=== PATIENT | female | born 1985 | race Caucasian/White ===

== ENCOUNTER 2020-08-29 18:14 | Inpatient (IN) | payer BC ==
[~2020-08-29] VITALS: Ht 165.1 cm; Wt 65.3 kg
[2020-08-29] MEDS: POTASSIUM CL. PREMIX PERIPHER. 50 ML IV SCH ×4 (00:14→23:14)
--- NOTE | 2020-08-29 18:20 | NUR ---
PT UNABLE TO COLLECT URINE AT THIS TIME
--- NOTE | 2020-08-29 18:20 | NUR ---
UMM FROM HOME WITH LOWER ABDOMINAL PAIN OF 10/10 W/ NAUSEA AND VOMITING SINCE 0100. PT WAS GIVEN IV FLUIDS, NAUSA MEDICATION AND PAIN MEDICATION AT 10:00AM. AWAITING FOR MD MANDEL
--- NOTE | 2020-08-29 18:37 | NUR ---
iv line established blood drawn and sent to lab
--- NOTE | 2020-08-29 18:40 | NUR ---
PT UNABLE TO COLLECT URINE AT THIS TIME
--- NOTE | 2020-08-29 18:59 | NUR ---
MD MA AT BEDSIDE FOR EVALUATION
[2020-08-29 19:03] LABS: ALBUMIN 3.6 g/dL (3.4-5.0); BILIRUBIN,DIRECT 0.4 mg/dL (0.0-0.2); BILIRUBIN,TOTAL 2.7 mg/dL (0.2-1.0); CALCIUM, SERUM 9.1 mg/dL (8.5-10.1); POTASSIUM 3.3 mmol/L (3.5-5.1); TOTAL PROTEIN, SERUM 7.5 g/dL (6.4-8.2)
[2020-08-29] MEDS ORDERED: IOHEXOL-300 100 ML VIAL IV ONE (19:20)
[2020-08-29] MEDS ORDERED: IV NS 0.9% 250 ML IV ONE (19:20)
[2020-08-29] MEDS ORDERED: ONDANSETRON HCL/PF 4 MG/2 ML VIAL ONE ×2 (19:22→21:08)
--- NOTE | 2020-08-29 19:28 | NUR ---
URINE COLLECTED AND SENT TO LAB
[2020-08-29] MEDS ORDERED: ONDANSETRON HCL/PF - ER 4 MG/2 ML VIAL IV ONE (19:30)
[2020-08-29] MEDS ORDERED: HYDROMORPHONE 1 MG/1 ML DISP.SYRIN IV ONE (19:30)
[2020-08-29] MEDS ORDERED: IV NS 0.9% 1,000 ML IV ONE (19:30)
[2020-08-29] MEDS ORDERED: MORPHINE SULFATE INJ 2 MG/ML DISP.SYRIN IV ONE (19:30)
[2020-08-29 19:38] LABS: APPEARANCE,URINE CLEAR (CLEAR); BILIRUBIN,URINE SMALL (NEGATIVE); BLOOD, URINE NEGATIVE Ery/uL (NEGATIVE); COLOR,URINE YELLOW (YELLOW); KETONES,URINE >=80 (NEGATIVE); LEUKOCYTE ESTERASE ,URINE NEGATIVE (NEGATIVE); NITRITE, URINE NEGATIVE (NEGATIVE); PH,URINE 7.5 (5.0-8.0); PROTEIN,URINE TRACE mg/dl (NEGATIVE); UGLUCOSE NEGATIVE (NEGATIVE); UROBILINOGEN,URINE 0.2 EU/dL (0.2)
[2020-08-29 20:00] LABS: BACTERIA,URINE Few /HPF (None Seen); RBC,URINE 0-2 /HPF (0-2); SQUAMOUS EPITHELIAL CELL,UR Few /HPF (None Seen); WBC,URINE 0-2 /HPF (0-3)
--- NOTE | 2020-08-29 20:09 | NUR ---
dinorah nazario inner tube cutter at bedside
[2020-08-29 20:14] LABS: BASOPHILS % (AUTO) 0.2 % (0.0-2.0); EOSINOPHILS % (AUTO) 0.1 % (0.0-6.0); HEMATOCRIT 40 % (33-45); HEMOGLOBIN 13.4 g/dL (11.5-14.8); LYMPHOCYTES # (AUTO) 2.2 /CMM (0.8-4.8); MEAN CORPUSCULAR HGB CONC 33 g/dl (31.0-36.0); MEAN CORPUSCULAR VOLUME 86 fL (82-100); MONOCYTES # (AUTO) 1.1 /CMM (0.1-1.30); MONOCYTES % (AUTO) 8.1 % (2.0-12.0); NEUTROPHILS # (AUTO) 10.5 /CMM (1.8-8.9); NEUTROPHILS % (AUTO) 75.6 % (43.0-81.0); PLATELET COUNT (AUTO) 273 /CMM (150-450); RED BLOOD CELL COUNT(AUTO) 4.67 MIL/uL (4.0-5.2); WHITE BLOOD COUNT (AUTO) 13.8 K/uL (4.3-11.0)
[2020-08-29] MEDS ORDERED: POTASSIUM CL. PREMIX PERIPHER. 200 ML ONE (20:37)
--- NOTE | 2020-08-29 21:12 | NUR ---
verbal order zofran 4mg ivp by dinorah nazario np.
--- NOTE | 2020-08-29 22:10 | NUR ---
report given to johny brito for beau; pt transported to 3rd floor
--- NOTE | 2020-08-29 22:15 | NUR ---
RN ADMITTING NOTES PATIENT RECEIVED FROM ER ACCOMPANIED BY ER STAFF. A/O X 4, ABLE TO AMBULATE ON OWN. STABLE ON RA WITH BREATHING EVEN AND UNLABORED, NO SOB NOTED. NO SIGNS OF ACUTE DISTRESS. SLIGHT COMPLAINTS OF PAIN AND DISCOMFORT AT THE MOMENT. IV LOCATED ON R HAND #18 RUNNING POTASSIUM- 2/4 BAGS INFUSED. ALL BELONGINGS ACCOUNTED FOR. VITALS TAKEN. SKIN ASSESSMENT DONE. PATIENT ORIENTED TO ROOM AND STAFF. SAFETY PRECAUTIONS IN PLACE WITH BED IN LOWEST POSITION, CALL LIGHT WITHIN REACH, BREAKS ON, SIDE RAILS UP. WILL CONTINUE TO MONITOR THROUGHOUT THE NIGHT.
[2020-08-29 22:30] VITALS: BP 122/56
[2020-08-29] MEDS ORDERED: HYOSCYAMINE SULFATE 0.125 MG TAB.SUBL SL PRN (22:30)
[2020-08-29] MEDS ORDERED: ONDANSETRON HCL/PF 4 MG/2 ML VIAL IVP PRN (22:30)
[2020-08-29] MEDS ORDERED: ZOLPIDEM TARTRATE 5 MG TABLET PO PRN (22:30)
[2020-08-30] MEDS: IV LR 1000 ML 1,000 ML IV PRN ×2 (00:15→06:13)
[2020-08-30] MEDS: HYDROMORPHONE INJ 2 MG/ML DISP.SYRIN IV PRN ×4 (00:25→20:43)
--- NOTE | 2020-08-30 00:30 | NUR ---
RN NOTES PATIENT REQUESTED TO STOP POTASSIUM INFUSION DUE TO COMPLAINTS OF STINGING ON ARM. STOPPED FOR NOW, WILL TRY TO CONTINUE. 3/4 POTASSIUM BAGS INFUSED. WILL CONTINUE TO MONITOR.
[2020-08-30] MEDS ORDERED: PIPERACILLIN /TAZOBACTAM 3.375 G VIAL IV ONE (02:55)
[2020-08-30] MEDS ORDERED: PIPERACILLIN /TAZOBACTAM 3.375 G in IV D5W 50 ML IV SCH ×4 (03:00→09:00)
--- NOTE | 2020-08-30 06:39 | NUR ---
RN NOTES PATIENT REFUSED BLOOD DRAW, WILL TRY AGAIN LATER.
--- NOTE | 2020-08-30 06:50 | NUR ---
RN OPENING NOTES PATIENT IN BED RESTING A/O X 4. STABLE ON RA WITH BREATHING EVEN AND UNLABORED, NO SOB NOTED. NO SIGNS OF ACUTE DISTRESS. SLIGHT COMPLAINTS OF PAIN AND DISCOMFORT. IV LOCATED ON R HAND #18 RUNNING LR @ 125 ML/HR. SAFETY PRECAUTIONS IN PLACE WITH BED IN LOWEST POSITION, CALL LIGHT WITHIN REACH, BREAKS ON, SIDE RAILS UP. WILL ENDORSE TO ONCOMING SHIFT ABOUT GERBER.
[2020-08-30 07:18] LABS: BASOPHILS % (AUTO) 0.3 % (0.0-2.0); EOSINOPHILS % (AUTO) 0.2 % (0.0-6.0); HEMATOCRIT 35 % (33-45); HEMOGLOBIN 11.7 g/dL (11.5-14.8); MEAN CORPUSCULAR HGB CONC 34 g/dl (31.0-36.0); MEAN CORPUSCULAR VOLUME 85 fL (82-100); MONOCYTES % (AUTO) 11.1 % (2.0-12.0); NEUTROPHILS % (AUTO) 74.4 % (43.0-81.0); PLATELET COUNT (AUTO) 177 /CMM (150-450); RED BLOOD CELL COUNT(AUTO) 4.04 MIL/uL (4.0-5.2); WHITE BLOOD COUNT (AUTO) 10.1 K/uL (4.3-11.0)
[2020-08-30 07:19] LABS: LYMPHOCYTES # (AUTO) 1.4 /CMM (0.8-4.8); MONOCYTES # (AUTO) 1.1 /CMM (0.1-1.30); NEUTROPHILS # (AUTO) 7.5 /CMM (1.8-8.9)
--- NOTE | 2020-08-30 07:33 | NUR ---
MS/RN OPENING NOTES RECEIVED PATIENT IN BED SLEEPING EASILY AROUSABLE BY NAME AND LIGHT TOUCH. PATIENT IN NO APPARENT RESPIRATORY DISTRESS NOTED. DENIES PAIN AT THIS TIME. WILL CONTINUE TO MONITOR.
[2020-08-30 07:55] LABS: ALBUMIN 2.7 g/dL (3.4-5.0); BILIRUBIN,TOTAL 2.4 mg/dL (0.2-1.0); CALCIUM, SERUM 7.7 mg/dL (8.5-10.1); CREATININE 0.7 mg/dL (0.6-1.3); MAGNESIUM 1.6 mg/dL (1.8-2.4); POTASSIUM 3.6 mmol/L (3.5-5.1); TOTAL PROTEIN, SERUM 5.9 g/dL (6.4-8.2)
[2020-08-30 08:00] VITALS: BP 109/60
--- NOTE | 2020-08-30 08:02 | NUR ---
MS/RN NOTES PATIENT TEMP 100.2 AND PATIENT COMPLAINED OF HEADACHE, TYLENOL 5/325MG 2 TAB PO WAS GIVEN. WILL CONTINUE TO MONITOR.
[2020-08-30 08:10] LABS: THYROID STIMULATING HORMONE 0.31 uIU/mL (0.358-3.74)
--- NOTE | 2020-08-30 08:20 | NUR ---
/RN NOTES PATIENT COMPLAINED OF HEADACHE TYLENOL 325MG 2 TAB WAS GIVEN WILL CONTINUE TO MONITOR. Addendum: 08/30/20 at 1713 by LINDEN TALBOT RN ERROR
[2020-08-30] MEDS: PANTOPRAZOLE 40 MG VIAL IV SCH (08:23)
[2020-08-30] MEDS: ACETAMINOPHEN 325 MG TABLET PO PRN ×3 (08:23→23:27)
[2020-08-30] MEDS: PIPERACILLIN /TAZOBACTAM 3.375 G in IV D5W 100 ML IV SCH ×2 (08:31→16:44)
[2020-08-30] MEDS ORDERED: Magnesium 1GM/D5W 100ML PREMIX 100 ML IV SCH (09:00)
--- NOTE | 2020-08-30 09:00 | NUR ---
MS/RN NOTES RECHECKED PATIENT TEMP 98.8 WILL CONTINUE TO MONITOR.
[2020-08-30] MEDS ORDERED: AMPH15TA2 PO (09:49)
[2020-08-30] MEDS ORDERED: ZOLP5TAB2 PO (09:49)
--- NOTE | 2020-08-30 11:10 | NUR ---
MS/RN NOTES PATENT COMPLAINED OF PAIN RATED 9/10, DILAUDID 1 MG IV WAS GIVEN. WILL CONTINUE TO MONITOR.
--- NOTE | 2020-08-30 11:24 | NUR ---
MS/RN NOTES PATIENT WANT TO TALK TO MD, DR. JETER IS AWARE.
--- NOTE | 2020-08-30 15:09 | NUR ---
MS/RN NOTES PATENT COMPLAINED OF PAIN RATED 9/10, DILAUDID 1 MG IV WAS GIVEN. WILL CONTINUE TO MONITOR.
[2020-08-30 16:00] VITALS: BP 110/61
[2020-08-30] MEDS ORDERED: INFLUENZA VACCINE 2020-21 0.5 ML DISP.SYRIN IM ONE (17:00)
--- NOTE | 2020-08-30 17:10 | NUR ---
MS/RN NOTES FLU VACCINE IS ON HOLD TEMP 100.4 TYLENOL 5/325MG 2 TAB PO WAS GIVEN. WILL CONTINUE TO MONITOR.
--- NOTE | 2020-08-30 19:00 | NUR ---
MS/RN CLOSING NOTES PATIENT IS ON BED AWAKE, ALERT AND ORIENTED X4. PATIENT IN NO APPARENT RESPIRATORY DISTRESS. IV ACCESS AT RIGHT HAND # 18 G WITH IV FLUID OF NS 1L AT 125 ML/HR ON AND INFUSING WELL. SEEN AND EXAMINED BY MD WITH ORDERS MADE AND CARRIED OUT. SAFETY PRECAUTIONS WAS IN PLACED. BED IN LOWEST POSITION AND LOCKED. SIDERAILS UP X2. PATIENT LATEST TEMP 100.4. CALL LIGHT WITHIN REACH. WILL ENDORSED TO COOK SPECIALTY FOR GERBER.
--- NOTE | 2020-08-30 20:00 | NUR ---
RN NOTES RECEIVED PT. AWAKE ON BED, A/OX4, AMBULATORY COMPLAINED OF ABDOMINAL , TALK TO THE PT THAT WE'LL CHECK WHEN IS THE NEXT DUE PAIN MEDICATION AND SO CAN GIVE HER PAIN MEDS, NOT IN DISTRESS. CALL LIGHT WITHIN REACH, [id number], CONTINUE TO MONITOR
[2020-08-30 20:13] VITALS: BP 114/61
--- NOTE | 2020-08-30 20:45 | NUR ---
RN NOTES, NOTICED IV SITE IS ALREADY SWOLLEN, NEW IV LINE INSERTED BY ANOTHER NURSE, COMPLAINED OF ABDOMINAL PAIN- DILAUDID 1MG IV GIVEN ORDERED, V/S STABLE
[2020-08-31] MEDS: IV LR 1000 ML 1,000 ML IV PRN (00:07)
[2020-08-31] MEDS: PIPERACILLIN /TAZOBACTAM 3.375 G in IV D5W 100 ML IV SCH ×2 (00:07→08:37)
[2020-08-31] MEDS: HYDROMORPHONE INJ 2 MG/ML DISP.SYRIN IV PRN ×3 (00:10→07:15)
--- NOTE | 2020-08-31 04:02 | NUR ---
RN NOTES COMPLAINED OF ABDOMINAL PAIN- DILAUDID 1 MG IV GIVEN ORDERED, V/S STABLE
[2020-08-31 06:11] LABS: BASOPHILS % (AUTO) 0.2 % (0.0-2.0); EOSINOPHILS % (AUTO) 0.1 % (0.0-6.0); HEMATOCRIT 34 % (33-45); HEMOGLOBIN 11.5 g/dL (11.5-14.8); LYMPHOCYTES # (AUTO) 1.3 /CMM (0.8-4.8); LYMPHOCYTES % (AUTO) 13.3 % (20.0-44.0); MEAN CORPUSCULAR HGB CONC 34 g/dl (31.0-36.0); MEAN CORPUSCULAR VOLUME 86 fL (82-100); MONOCYTES # (AUTO) 0.9 /CMM (0.1-1.30); NEUTROPHILS # (AUTO) 7.7 /CMM (1.8-8.9); NEUTROPHILS % (AUTO) 77.4 % (43.0-81.0); PLATELET COUNT (AUTO) 173 /CMM (150-450); RED BLOOD CELL COUNT(AUTO) 3.94 MIL/uL (4.0-5.2); WHITE BLOOD COUNT (AUTO) 9.9 K/uL (4.3-11.0)
[2020-08-31 06:30] LABS: CALCIUM, SERUM 7.7 mg/dL (8.5-10.1); CREATININE 0.8 mg/dL (0.6-1.3); MAGNESIUM 1.8 mg/dL (1.8-2.4); PHOSPHORUS 3.1 mg/dL (2.5-4.9); POTASSIUM 3.3 mmol/L (3.5-5.1)
--- NOTE | 2020-08-31 06:47 | NUR ---
RN NOTES SLEEPING BUT AROUSABLE, MORNING CARE RENDERED, CALL LIGHT WITHIN REACH, [id number], PT. NEEDS ATTENDED
--- NOTE | 2020-08-31 07:33 | NUR ---
MS/RN OPENING NOTES PATIENT IS ON BED AWAKE ALERT AND ORIENTED X4. PATIENT IS CRYING, MOANING AND RSTLESS. PATIENT IS COMPLAINING OF PAIN RATED 9/10. DILAUDID 1 MG IV WAS GIVEN. PATIENT IN NO APPARENT RESPIRATORY DISTRESS NOTED.
[2020-08-31] MEDS: POTASSIUM CHLORIDE 20 MEQ TAB.PRT.SR PO SCH ×2 (08:38→10:14)
[2020-08-31] MEDS: PANTOPRAZOLE 40 MG VIAL IV SCH (08:38)
[2020-08-31] MEDS: ACETAMINOPHEN 325 MG TABLET PO PRN (08:43)
--- NOTE | 2020-08-31 08:50 | NUR ---
MS/RN NOTES PATIENT COMPLAINED OF HEADACHE, PATIENT REQUEST FOR TYLENOL. TYLENOL 325 MG 2 TAB PO WAS GIVEN. WILL CONTINUE TO MONITOR.
--- NOTE | 2020-08-31 09:10 | NUR ---
MS/RN NOTES PATIENT REFUSED TO TAKE FLU SHOT. EXPLAINED THE RISK AND BENEFITS PATIENT IS STILL REFUSING.
[2020-08-31] MEDS ORDERED: LEVO500T90 PO (10:24)
[2020-08-31] MEDS ORDERED: HYDR-4384 PO (10:24)
[2020-08-31] MEDS ORDERED: HYDROMORPHONE INJ 2 MG/ML DISP.SYRIN IV PRN (10:30)
--- NOTE | 2020-08-31 13:15 | NUR ---
MS/RN NOTES PATIENT IS ALERT AND ORIENTED X4. RESPIRATION REGULAR AND UNLABORED. PATIENT DENIES PAIN AT THIS TIME. PATIENT IN NO APPARENT RESPIRATORY DISTRESS NOTED. SEEN AND EXAMINED BY MD WITH ORDERS MADE AND CARRIED OUT. PATIENT WAS GIVEN DISCHARGED INSTRUCTIONS AND PATIENT VERBALIZED UNDERSTANDING. THE PATIENT LEFT IN THE HOSPITAL IN MEDICALLY STABLE CONDITION AT 1300. TREASURY REPRESENTATIVE BY SANTOS (FRIEND) VIA PRIVATE CAR.
== END 2020-08-31 13:00 | disposition home or self-care (01) | DRG 391 ==
LOC: ER 18:21 → MED 21:48
PROVIDERS: ADMIT Nurse Practitioner Acute Care; ATTEND Internal Medicine
DX: A09 Infectious gastroenteritis and colitis, unspecified (principal); K65.9 Peritonitis, unspecified; K59.00 Constipation, unspecified; K31.9 Disease of stomach and duodenum, unspecified; E80.6 Other disorders of bilirubin metabolism; E87.6 Hypokalemia; E86.0 Dehydration
CPT/HCPCS: 36415; 76705-TC; 76856-TC; 80048-TC; 80053-TC; 80061-TC; 80076-TC; 81000-TC; 83690-TC; 83735-TC; 84100-TC; 84443-TC; 84702-TC; 85025-TC; 87081-TC; C9113; C9803; G0378; J1170; J2270; J2405; J2543; J3475; J3480; J7040; J7050; J7060; J7120; Q9967